=== PATIENT | male | born 1960 | race Caucasian/White ===

== ENCOUNTER 2018-04-30 17:34 | Emergency (ER) | payer OTHER ==
[2018-04-30] MEDS ORDERED: Ibuprofen TAB* 600 MG PO ONE ×2 (18:10→21:15)
--- NOTE | 2018-04-30 19:54 | RAD ---
EXAM: CT Chest Without Intravenous Contrast CLINICAL HISTORY: 58 years old, male; Injury or trauma; Fall; Initial encounter; Abrasion; Additional info: Left sided rib injury TECHNIQUE: Axial computed tomography images of the chest without intravenous contrast. All CT scans at this facility use at least one of these dose optimization techniques: automated exposure control; mA and/or kV adjustment per patient size (includes targeted exams where dose is matched to clinical indication); or iterative reconstruction. Coronal and sagittal reformatted images were created and reviewed. COMPARISON: No relevant prior studies available. FINDINGS: Lungs: Unremarkable. No mass. No consolidation. Pleural space: Minimal pleural fluid on the left and small focus of pulmonary contusion posteriorly left lower lobe. Limited cast surrounding the fragmented 10th rib without significant pneumothorax. Heart: Unremarkable. No cardiomegaly. No significant pericardial effusion. Mediastinum: Small hiatal hernia. Bones/joints: There are acute anterolateral fractures of the left fifth sixth seventh and eighth ribs with mild offset. There are additional posterior fractures of the left ninth 10th 11th and 12th ribs with segmental moderately offset fractures of the 10th rib and segmental nondisplaced fractures of the ninth rib. Corresponding risk for development of flail chest. No dislocation. Soft tissues: Unremarkable. Vasculature: Unremarkable. No thoracic aortic aneurysm. Lymph nodes: Unremarkable. No enlarged lymph nodes. Other findings: No other acute disease seen. As above. IMPRESSION: 1. There are acute anterolateral fractures of the left fifth sixth seventh and eighth ribs with mild offset. There are additional posterior fractures of the left ninth 10th 11th and 12th ribs with segmental moderately offset fractures of the 10th rib and segmental nondisplaced fractures of the ninth rib. Corresponding risk for development of flail chest. 2. Minimal pleural fluid on the left and small focus of pulmonary contusion posteriorly left lower lobe. Limited gas surrounding the fragmented 10th rib without significant pneumothorax. 3. No other acute disease seen. As above. To contact [facility] with a general question: [facility] - [phone] For direct physician to physician contact: Physician Hotline - [phone] [facility] ([facility] Facility ID #[id number])
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
[2018-04-30] MEDS ORDERED: Acetaminophen TAB* 325 MG PO ONE (21:11)
[2018-04-30 21:26] VITALS: BP 119/66
== END 2018-04-30 21:24 | disposition short-term general hospital (02) ==
LOC: ED 17:34
DX: S27.321A Contusion of lung, unilateral, initial encounter (principal); S22.42XA Multiple fractures of ribs, left side, initial encounter for closed fracture; V92.09XA Drowning and submersion due to fall off unspecified watercraft, initial encounter; Y93.89 Activity, other specified; Y92.9 Unspecified place or not applicable; Z72.0 Tobacco use; S61.411A Laceration without foreign body of right hand, initial encounter; S01.81XA Laceration without foreign body of other part of head, initial encounter
CPT/HCPCS: 12001; 12011; 71250; 99283; A9270-GY

== ENCOUNTER 2018-11-24 19:39 | Emergency (ER) | payer OTHER ==
[2018-11-24] MEDS ORDERED: Eye Irrigation Solution 30 ML BOTTLE ONE (20:08)
[2018-11-24 20:17] VITALS: BP 124/72
[2018-11-24] MEDS ORDERED: Eye Irrigation Solution 30 ML BOTTLE LEFT EYE ONE (20:20)
[2018-11-24] MEDS ORDERED: Tobramycin 0.3% OPHTH.SOL* 5 ML BOT (regular eye drops) LEFT EYE ONE (20:37)
--- NOTE | 2018-11-24 20:37 | UC ---
Eye Complaint HPI - HPI Summary HPI Summary: 58-year-old male comes in with a chief complaint of a piece of wood in his left eye. He was putting his ladder back over some wooden beams and he had something fall into his left eye. Patient could see a piece of wood floating around but he couldn't get it out is rather irritating. No loss of vision. - History of Current Complaint Chief Complaint: UCEye Stated Complaint: EYE COMPLAINT Time Seen by Provider: 11/24/18 20:19 Pain Intensity: 2 - Allergies/Home Medications Allergies/Adverse Reactions: Allergies Allergy/AdvReac Type Severity Reaction Status Date / Time Penicillins Allergy Unknown Verified 11/24/18 20:17 Reaction Details PMH/Surg Hx/FS Hx/Imm Hx Previously Healthy: Yes Other History Of: Negative For: Anticoagulant Therapy - Surgical History Surgical History: Yes Surgery Procedure, Year, and Place: HERNIA - [facility]ABY;. ADNOIDS REMOVED - CHILD;. INGUINAL HERNIA; - Family History Known Family History: Positive: Hypertension - Social History Alcohol Use: Occasionally Substance Use Type: None Smoking Status (MU): Light Every Day Tobacco Smoker Review of Systems All Other Systems Reviewed And Are Negative: Yes Constitutional: Positive: Negative Skin: Positive: Negative Eyes: Positive: Drainage, Other - see hpi ENT: Positive: Negative Respiratory: Positive: Negative Cardiovascular: Positive: Negative Gastrointestinal: Positive: Negative Motor: Positive: Negative Neurovascular: Positive: Negative Musculoskeletal: Positive: Negative Neurological: Positive: Negative Psychological: Positive: Negative Is Patient Immunocompromised?: No Physical Exam Triage Information Reviewed: Yes Appearance: Well-Appearing, No Pain Distress, Well-Nourished Vital Signs: Initial Vital Signs Temp 98 F 11/24/18 20:04 Pulse 78 11/24/18 20:04 Resp 16 11/24/18 20:04 BP 124/72 11/24/18 20:04 Pulse Ox 98 11/24/18 20:04 Eyes: Positive: Conjunctiva Inflamed, Other: - perrla/eomi, 3mm x 1mm wood flake washed out of the left eye by nursing. Patient feels improved after FB out of eye. Neck: Positive: Supple Respiratory: Positive: No respiratory distress Musculoskeletal: Positive: Strength Intact, ROM Intact Neurological: Positive: Alert, Muscle Tone Normal Psychological Exam: Normal Psychological: Positive: Age Appropriate Behavior Skin Exam: Normal Eye Complaint Course/Dx - Differential Dx/Diagnosis Provider Diagnosis: Foreign body of left eye Discharge - Sign-Out/Discharge Documenting (check all that apply): Patient Departure All imaging exams completed and their final reports reviewed: No Studies - Discharge Plan Condition: Stable Disposition: HOME Patient Education Materials: Eye Foreign Body (ED) Referrals: Deshawn Sandoval MD [Primary Care Provider] - [facility] [Provider Group] Additional Instructions: FOLLOW UP WITH OPHTHALMOLOGY, DR VILLARREAL, IF NOT COMPLETELY IMPROVED. GET RECHECKED SOONER IF YOUR CONDITION WORSENS OR ANY QUESTIONS OR CONCERNS. - Billing Disposition and Condition Condition: STABLE Disposition: Home
== END 2018-11-24 20:53 | disposition home or self-care (01) ==
LOC: UCEAST 19:39
DX: T15.92XA Foreign body on external eye, part unspecified, left eye, initial encounter (principal); X58.XXXA Exposure to other specified factors, initial encounter; Y92.9 Unspecified place or not applicable; Z88.0 Allergy status to penicillin; F17.200 Nicotine dependence, unspecified, uncomplicated
CPT/HCPCS: 65205; 67938; 99212; 99213; A9270-GY; G0463

== ENCOUNTER 2024-03-17 06:04 | Observation (INO) ==
[~2024-03-17 06:04] MED LIST: Naloxone 0.4 mg VIAL 0.4 mg/ml 1 ml VIAL IV PRN; fentaNYL 100 mcg/2 ml 50 MCG/ML VIAL IV PRN
[2024-03-17] MEDS ORDERED: Clindamycin 900 MG/50 **NS BAG 900 MG/50 ML BAG ONE (06:33)
[2024-03-17] MEDS ORDERED: Lidocaine 2% PF 5 ML VIAL ONE (06:58)
[2024-03-17] MEDS ORDERED: Propofol 10 MG/ML 20 ML BTL ONE ×3 (06:58→08:35)
[2024-03-17 06:59] LABS: Rapid COVID-19 Molecular Undetected (Undetected)
[2024-03-17] MEDS ORDERED: Midazolam 2 mg/2 ml VIAL 1 mg/ml 2 ml VIAL (2 mg) ONE (06:59)
[2024-03-17] MEDS ORDERED: fentaNYL 250 mcg/5 ml 50 MCG/ML 5 ml VIAL (250 MCG) ONE (06:59)
[2024-03-17] MEDS ORDERED: Rocuronium 50 mg VIAL 10 mg/ml 5 ml VIAL (50 mg) ONE (07:04)
[2024-03-17] MEDS ORDERED: Ondansetron 4 mg VIAL 2 MG/ML 2 ml VIAL IV PRN (07:31)
[2024-03-17] MEDS ORDERED: Ondansetron 4 mg VIAL 2 MG/ML 2 ml VIAL ONE ×2 (08:07→10:10)
[2024-03-17] MEDS ORDERED: Phenylephrine 40 mcg/mL 10mL (400mcg) SYRINGE ONE ×2 (08:20→08:43)
[2024-03-17] MEDS ORDERED: Furosemide 20 mg/2 ml IV VIAL ONE (08:37)
[2024-03-17] MEDS ORDERED: Phenylephrine IV 10 MG/ML 1 ml VIAL ONE (08:42)
[2024-03-17] MEDS ORDERED: Dexamethasone IV 4 MG/ML VIAL 1 ml VIAL ONE (10:10)
[2024-03-17] MEDS ORDERED: Acetaminophen IV 1 GM/100ML 0 MG/0 ML BAG IV ONE (10:20)
[2024-03-17] MEDS: NS 0.9% 1000 ml BAG 1,000 ML IV SCH (11:46)
[2024-03-17] MEDS: Buffered Lidocaine 1% SYRIN 1 ml INTRADERM ONE (12:42)
[2024-03-17] MEDS: Magnesium Hydroxide LIQ 30 ML UDC PO SCH (12:44)
[2024-03-17] MEDS: Neomycin/Polym/Bacit TOP OINT 15 GM TOPICAL SCH (12:46)
[2024-03-17] MEDS: Lactated Ringers 1000 ml BAG 1,000 ML IV SCH (12:48)
[2024-03-17] MEDS: Gentamicin ADULT 340 MG in NS 0.9% 100 ml BAG 100 ML IVPB ONE (12:48)
[2024-03-18 10:53] VITALS: BP 105/67
== END 2024-03-18 12:10 | disposition home or self-care (01) ==
LOC: OR 06:04 → SSU 06:04
PROVIDERS: ADMIT Urology; ATTEND Urology